=== PATIENT | female | born 1945 | race Caucasian/White ===

== ENCOUNTER → 2017-08-29 | Outpatient (CLI) | payer MEDICARE | END | disposition home or self-care (01) | LOC: ROC 05-17 12:52 | PROVIDERS: ATTEND Radiology Radiation Oncology | DX: Z08 Encounter for follow-up examination after completed treatment for malignant neoplasm (principal); C43.1 Malignant melanoma of eyelid, including canthus | CPT/HCPCS: 99213; G0463 ==

== ENCOUNTER → 2017-11-28 | Outpatient (CLI) | payer MEDICARE | END | disposition home or self-care (01) | LOC: ROC 14:38 | PROVIDERS: ATTEND Radiology Radiation Oncology | DX: Z08 Encounter for follow-up examination after completed treatment for malignant neoplasm (principal); C43.1 Malignant melanoma of eyelid, including canthus; Z92.3 Personal history of irradiation; Z88.8 Allergy status to other drugs, medicaments and biological substances; Z88.5 Allergy status to narcotic agent | CPT/HCPCS: 99212; G0463 ==

== ENCOUNTER → 2018-03-05 | Outpatient (CLI) | payer MEDICARE | END | disposition home or self-care (01) | LOC: PETCFH 09:18 | PROVIDERS: ATTEND Radiology Radiation Oncology | DX: C43.1 Malignant melanoma of eyelid, including canthus (principal) | CPT/HCPCS: 78816; A9552 ==

== ENCOUNTER → 2018-06-09 | Outpatient (CLI) | payer MEDICARE | END | disposition home or self-care (01) | LOC: ROC 03-07 09:25 | PROVIDERS: ATTEND Radiology Radiation Oncology | DX: C76.0 Malignant neoplasm of head, face and neck (principal) | CPT/HCPCS: 99213; G0463 ==

== ENCOUNTER → 2019-03-06 | Outpatient (CLI) | payer MEDICARE | END | disposition home or self-care (01) | LOC: PETCFH 11:31 | PROVIDERS: ATTEND Radiology Radiation Oncology | DX: C49.0 Malignant neoplasm of connective and soft tissue of head, face and neck (principal); J84.10 Pulmonary fibrosis, unspecified; K57.30 Diverticulosis of large intestine without perforation or abscess without bleeding; I87.8 Other specified disorders of veins | CPT/HCPCS: 78816; A9552 ==

== ENCOUNTER 2019-03-16 08:51 | Outpatient (CLI) | payer MEDICARE | END 2019-03-16 23:59 | disposition home or self-care (01) | LOC: ROC 08:51 | PROVIDERS: ATTEND Radiology Radiation Oncology | DX: C43.1 Malignant melanoma of eyelid, including canthus (principal) | CPT/HCPCS: 99212; G0463 ==

== ENCOUNTER → 2019-11-05 | Outpatient (CLI) | payer MEDICARE | END | disposition home or self-care (01) | LOC: ROC 07:08 | PROVIDERS: ATTEND Radiology Radiation Oncology | DX: C43.1 Malignant melanoma of eyelid, including canthus (principal); Z79.899 Other long term (current) drug therapy; Z88.5 Allergy status to narcotic agent; Z88.2 Allergy status to sulfonamides; Z88.8 Allergy status to other drugs, medicaments and biological substances | CPT/HCPCS: 99213; G0463 ==